=== PATIENT | female | born 1990 | race Caucasian/White ===

== ENCOUNTER 2018-01-20 19:21 | Outpatient (CLI) | payer OTHER ==
[~2018-01-20] VITALS: Ht 165.1 cm; Wt 75.7 kg
[~2018-01-20 19:21] MED LIST: ABILIFY5 MG PO; ATIVAN0.5 MG PO; BIRTH CONTROL PO; BUSPAR5 MG PO; ENDOCET 5-3251 EACH PO; Motrin PO; NOHOMEMEDS; PERCOCET 5/31 TABLET PO; SEROQUEL50 MG PO; ZOFRAN4 MG PO
[2018-01-20 19:59] VITALS: BP 101/51
[2018-01-20] MEDS ORDERED: FLINTSTONES1 EACH PO (20:11)
[2018-01-20 21:22] LABS: AMPHETAMINE NEGATIVE (500 ng/mL); BARBITURATES NEGATIVE (200 ng/mL); BENZODIAZEPINES NEGATIVE (150 ng/mL); BUPRENORPHINE NEGATIVE (10 ng/mL); COCAINE NEGATIVE (150 ng/mL); METHADONE NEGATIVE (200 ng/mL); METHAMPHETAMINE NEGATIVE (500 ng/mL); OPIATES (MORPHINE) NEGATIVE (100 ng/mL); OXYCODONE NEGATIVE (100 ng/mL); PHENCYCLIDINE NEGATIVE (25 ng/mL); PROPOXYPHENE NEGATIVE (300 ng/mL); THC CANNABINOIDS PRESUMPTIVE POSITIVE (50 ng/mL); TRICYCLIC ANTIDEPRESSANTS NEGATIVE (300 ng/mL)
[2018-01-20] MEDS ORDERED: FIORICET 50-301 EAC1 PO (21:53)
== END 2018-01-20 22:20 | disposition home or self-care (01) ==
LOC: LDRP-OP → 2WEST 19:22
PROVIDERS: Advanced Practice Midwife
DX: O99.89 Other specified diseases and conditions complicating pregnancy, childbirth and the puerperium (principal); G43.909 Migraine, unspecified, not intractable, without status migrainosus; Z3A.26 26 weeks gestation of pregnancy
CPT/HCPCS: 59025; 84999; G0378